=== PATIENT | female | born 1940 | race Caucasian/White ===

== ENCOUNTER 2020-03-04 14:57 | Outpatient (CLI) | payer MEDICARE, SELFPAY ==
--- NOTE | 2020-03-04 15:07 | XRR_ITS ---
PROCEDURE INFORMATION: Exam: XR Left Knee Exam date and time: 03/04/2020 3:25 PM Age: 80 years old Clinical indication: Left; Patient HX: C/O L knee pain ; . HX of breast cancer TECHNIQUE: Imaging protocol: XR Left knee. Views: 3 views. COMPARISON: No relevant prior studies available. FINDINGS: Bones/joints: Of narrowing of the medial and patellofemoral compartments are seen. These findings are consistent with osteoarthritis Soft tissues: Normal. XR/XR knee LT 3V* [id number] IMPRESSION: No acute bony abnormality.
== END 2020-03-04 14:58 | disposition home or self-care (01) ==
LOC: RAD 15:04
PROVIDERS: PCP Family Medicine; Visit Provider Family Medicine
DX: M25.562 Pain in left knee (principal)
CPT/HCPCS: 73562

== ENCOUNTER → 2020-06-03 12:15 | Outpatient (BNVA) | payer MEDICARE, SELFPAY | PROVIDERS: PCP Family Medicine; Visit Provider Nurse Practitioner Family | DX: Z20.828 Contact with and (suspected) exposure to other viral communicable diseases (principal) | CPT/HCPCS: 87635 ==

== ENCOUNTER 2021-07-26 20:00 | Outpatient (CLI) | payer MEDICARE, OTHER, SELFPAY | END 2021-07-26 20:01 | disposition home or self-care (01) | LOC: SLEEP 07-27 07:35 | PROVIDERS: PCP Family Medicine; Visit Provider Family Medicine | DX: G47.33 Obstructive sleep apnea (adult) (pediatric) (principal) | CPT/HCPCS: 95811 ==

== ENCOUNTER 2021-09-21 20:00 | Outpatient (CLI) | payer MEDICARE, OTHER, SELFPAY | END 2021-09-21 20:01 | disposition home or self-care (01) | LOC: SLEEP 09-22 06:24 | PROVIDERS: PCP Family Medicine; Visit Provider Family Medicine | DX: G47.33 Obstructive sleep apnea (adult) (pediatric) (principal) | CPT/HCPCS: 95811 ==

== ENCOUNTER → 2021-12-02 14:37 | Outpatient (BNVA) | payer MEDICARE, OTHER, SELFPAY | PROVIDERS: PCP Family Medicine; Visit Provider Podiatrist Foot & Ankle Surgery | DX: M72.2 Plantar fascial fibromatosis (principal) | CPT/HCPCS: 99203; 99204 ==

== ENCOUNTER → 2022-01-10 14:23 | Outpatient (BNVA) | payer MEDICARE, OTHER, SELFPAY | PROVIDERS: PCP Family Medicine; Visit Provider Podiatrist Foot & Ankle Surgery | DX: M72.2 Plantar fascial fibromatosis (principal); E11.21 Type 2 diabetes mellitus with diabetic nephropathy | CPT/HCPCS: 20550; J1100; J3301; J3490 ==

== ENCOUNTER → 2022-02-21 13:52 | Outpatient (BNVA) | payer MEDICARE, OTHER, SELFPAY | PROVIDERS: PCP Family Medicine; Visit Provider Podiatrist Foot & Ankle Surgery | DX: M72.2 Plantar fascial fibromatosis (principal) | CPT/HCPCS: 99213 ==

== ENCOUNTER → 2022-03-23 08:56 | Outpatient (BNVA) | payer MEDICARE, OTHER, SELFPAY | PROVIDERS: PCP Family Medicine; Visit Provider Family Medicine | DX: K58.9 Irritable bowel syndrome, unspecified (principal); E55.9 Vitamin D deficiency, unspecified; M10.9 Gout, unspecified; E11.9 Type 2 diabetes mellitus without complications | CPT/HCPCS: 80053; 80061; 83036; 84443; 85025 ==

== ENCOUNTER 2022-04-27 11:47 | Outpatient (CLI) | payer MEDICARE, OTHER, SELFPAY ==
--- NOTE | 2022-04-27 12:00 | CT_ITS ---
WS: [id number] CT NECK WITH CONTRAST HISTORY: anterior neck cyst TECHNIQUE: Contiguous 5 mm axial images are performed through the neck with intravenous contrast. Sag ittal and coronal reformats are also submitted. All CT scans at [facility] use at least one o f these dose optimization techniques: automated exposure control; mA and/or kV adjustment per patient size (includes targeted exams where dose is matched to clinical indication); or iterative reconstruc tion. CONTRAST: CONTRAST: Omnipaque 350; 65 mL IV. DLP: 252.91 mGy.cm COMPARISON: None available. Nasopharynx, oropharynx, hypopharynx and larynx are unremarkable. No soft tissue masses or abnormal e nhancement. Torus tubarius and fossa of Rosenmuller and parapharyngeal fat are normal. No significant lymphadenopathy is identified. Thyroid gland is enlarged and nodular. There are multiple small nodules with the largest in the LEFT thyroid measuring 9 mm. The LEFT lobe is slightly greater than the RIGHT. No midline mass. No thyrogl ossal duct cysts. Severe disc space narrowing with partial fusion at C6-7. Visualized portions of the skull base demonstrate no abnormalities. Orbits and globes are within norm al limits. No soft tissue masses. Visualized paranasal sinuses and mastoid air cells are normal. Lung apices are clear. Mediastinal recesses are distended with fluid around the upper mediastinum. CT/CT neck w con* [id number] IMPRESSION: 1. Enlarged multinodular goiter. Several small subcentimeter cysts within the LEFT thyroid. 2. No midline mass. 3. No laryngeal mass. 4. No cervical chain lymphadenopathy.
--- NOTE | 2022-04-27 12:30 | CT_ITS ---
WS: [id number] CT CHEST TECHNIQUE: Contrast enhanced CT of the chest with coronal and sagittal reformatted images. CLINICAL INFORMATION: chest mass, left superior anterior chest COMPARISON: None. DLP: 738.[address] scans at [facility] use at least one of these dose optimization techniques: automated e xposure control; mA and/or kV adjustment per patient size (includes targeted exams where dose is matc hed to clinical indication); or iterative reconstruction. FINDINGS: Heterogeneous enlarged multinodular goiter. This is worse in the LEFT inferior thyroid lobe with dominant heterogeneous nodule with slight extension to the upper mediastinum. Mild mass effect on the trachea LEFT to RIGHT at the thoracic inlet. Thyroid could be further evaluated with ultrasoun d. RIGHT breast prosthesis. Chronic emphysematous changes. Atelectasis in the lung bases. Mild perihilar and lower lobe bronchiectasis. Scattered fibrosis more prominent in the lower lobes. No suspicious pulmonary parenchymal opacities. Normal caliber thoracic aorta. Aortic calcification. C oronary calcification. Prominent central pulmonary arteries can be seen with pulmonary arterial hyper tension. Cardiomegaly. No mediastinal or hilar lymphadenopathy. No axillary lymphadenopathy. Cholecystectomy. Moderate esophageal hiatal hernia. Adrenal glands are normal. Partially visualized r enal cysts. CT/CT chest w con* [id number] IMPRESSION: 1. Enlarged heterogeneous multinodular thyroid compatible with goiter. Dominan t nodule LEFT inferior thyroid lobe extending into the upper mediastinum measur ing 2.3 x 2.3 x 2.5 CM. This can be further evaluated with ultrasound. Multiple low-attenuation subcentimeter thyroid lesions. 2. Mild chronic emphysematous changes. No acute pulmonary infiltrates. 3. Cardiomegaly. Enlarged main pulmonary arteries can be seen with pulmonary a rterial hypertension. 4. No mediastinal or hilar lymphadenopathy. No axillary lymphadenopathy. 5. Moderate esophageal hiatal hernia.
[2022-04-27] MEDS: iohexol 350 mg/mL 100 mL Btl IV ×2 (13:01→13:02)
== END 2022-04-27 11:48 | disposition home or self-care (01) ==
LOC: RAD 11:58
PROVIDERS: PCP Family Medicine; Visit Provider Family Medicine
DX: E04.2 Nontoxic multinodular goiter (principal); R22.2 Localized swelling, mass and lump, trunk; I51.7 Cardiomegaly
CPT/HCPCS: 70491; 71260

== ENCOUNTER 2022-06-17 12:21 | Outpatient (CLI) | payer MEDICARE, OTHER, SELFPAY ==
--- NOTE | 2022-06-17 12:39 | US_ITS ---
WS: [email or web address] Subcutaneous ultrasound of the posterior right back, 06/17/2022 Clinical Data: mass on the right mid back with associated pain Comparison: None. Findings: There was a palpable area in the right back but the subcutaneous ultrasound showed no cysts or masses . There were no abnormalities. Only normal subcutaneous tissue could be seen. US/US soft tissue/extremity [id number] Impression: Negative subcutaneous ultrasound for lesion in the posterior right back.
--- NOTE | 2022-06-17 12:40 | US_ITS ---
WS: [email or web address] Thyroid ultrasound, 06/17/2022 Clinical Data: HYPERTHYROIDISM Comparison: None. Findings: The right lobe of thyroid measures 4.4 cm x 1.7 cm x 1.6 cm. The left lobe measures 4.6 cm x 2.8 cm x 2.8 cm. The isthmus measured 0.6 mm. The echotexture of the thyroid is mixed with numerous small nodules and cysts.. No masses are seen. US/US thyroid [id number] Impression: Multinodular goiter.
== END 2022-06-17 12:22 | disposition home or self-care (01) ==
LOC: RAD 12:21
PROVIDERS: PCP Family Medicine; Visit Provider Family Medicine
DX: M79.89 Other specified soft tissue disorders (principal); E05.90 Thyrotoxicosis, unspecified without thyrotoxic crisis or storm; E04.2 Nontoxic multinodular goiter
CPT/HCPCS: 76536; 76882

== ENCOUNTER 2022-09-19 15:08 | Outpatient (CLI) | payer MEDICARE, OTHER, SELFPAY ==
--- NOTE | 2022-09-19 15:20 | XR_ITS ---
WS: [email or web address] EXAMINATION: XR chest 2V* [id number] REASON FOR EXAM: DYSPNEA COMPARISON: 08/15/2006. ORDER DATE: 09/19/2022 3:25 PM FINDINGS: There are scattered parenchymal and perihilar granulomatous calcifications. The cardiac and mediastin al outlines are unremarkable. There are no pleural effusions. There is calcific aortic change. Degene rative spine changes are present. Prominent osteoporosis and mild scoliosis with prominent kyphosis XR/XR chest 2V* [id number] IMPRESSION: NO ACUTE PULMONARY CHANGE.
== END 2022-09-19 15:09 | disposition home or self-care (01) ==
LOC: RAD 15:14
PROVIDERS: PCP Family Medicine; Visit Provider Family Medicine
DX: R06.00 Dyspnea, unspecified (principal)
CPT/HCPCS: 71046

== ENCOUNTER 2023-03-22 09:29 | Outpatient (CLI) | payer MEDICARE, OTHER, SELFPAY ==
[2023-03-22 10:41] LABS: Estmated Average Glucose 134; Hemoglobin A1C 6.3 % (4.0-6.0)
[2023-03-22 10:43] LABS: Creatinine Urine, Random 89 mg/dL (28-217); Microalbum Creatinine Ratio Ur 11 mg/dL (0-20); Microalbumin Random Urine 1 ug/dL (0-20)
[2023-03-22 10:49] LABS: Alanine Aminotransferase 16 U/L (0-33); Albumin Level 4.4 g/dL (3.5-5.2); Alkaline Phosphatase 70 U/L (35-105); Anion Gap 10.1 (5-19); Aspartate Amino Transferase 13 U/L (0-32); Blood Urea Nitrogen 19 mg/dL (8-23); Calcium 9.5 mg/dL (8.5-10.5); Carbon Dioxide 30 mmol/L (22-29); Chloride 106 mmol/L (98-107); Chol HDL Ratio 4.89 mg/dL (0.0-4.40); Cholesterol 181 mg/dL (0-200); Free T4 Free Thyroxine 1.08 ng/dL (0.82-1.77); Globulin 2.8 g/dL (1.3-4.6); Glucose 151 mg/dL (65-115); HDL Cholesterol 37 mg/dL (60-100); Osmolality Calculated 299 mOsm/kg (285-295); Potassium 4.1 mmol/L (3.5-5.1); Sodium 142 mmol/L (136-145); Thyroid Stimulating Hormone 2.59 uIU/mL (0.27-4.20); Total Bilirubin 0.3 mg/dL (0.15-1.2); Total Protein 7.2 g/dL (6.6-8.7); Triglycerides 497 mg/dL (0-150)
[2023-03-22 11:12] LABS: LDL Cholesterol Direct 79 mg/dL (0-100)
[2023-03-23 12:14] LABS: T3 Total 101 ng/dL (76-181)
== END 2023-03-22 09:30 | disposition home or self-care (01) ==
PROVIDERS: PCP Family Medicine; Visit Provider Internal Medicine
DX: E04.2 Nontoxic multinodular goiter (principal); E05.00 Thyrotoxicosis with diffuse goiter without thyrotoxic crisis or storm; E11.9 Type 2 diabetes mellitus without complications; G47.33 Obstructive sleep apnea (adult) (pediatric); M79.89 Other specified soft tissue disorders; R13.10 Dysphagia, unspecified; R06.02 Shortness of breath; Z79.84 Long term (current) use of oral hypoglycemic drugs
CPT/HCPCS: 36415; 80053; 80061; 82044; 83036; 83721; 84439; 84443; 84480; 99205

== ENCOUNTER 2023-04-03 09:38 | Outpatient (CLI) | payer MEDICARE, OTHER, SELFPAY ==
--- NOTE | 2023-04-03 10:00 | FL_ITS ---
WS: [email or web address] EXAMINATION: FL barium swallow modifd [id number] REASON FOR EXAM: Trouble swallowing ORDER DATE: 04/03/2023 9:43 AM FLUOROSCOPY TIME: 1min [id number] # OF SPOT FILMS: 0 TECHNIQUE: The oral cavity and upper pharyngeal and laryngeal region were observed in the lateral pro jection with fluoroscopy during swallowing. Different consistencies of liquid and food were mixed with barium and administered by the speech path ologist during fluoroscopy. FINDINGS: The oral stage was unremarkable with satisfactory initiation of the swallowing reflex. Mov ement of contrast coated material through the pharynx into the upper esophagus was observed. There wa s no evidence of penetration or aspiration. Please refer to speech pathologist report for specific de tails regarding swallowing function. There was no significant residual. IMPRESSION: PLEASE REFER TO THE SPEECH PATHOLOGIST REPORT FOR ADDITIONAL DETAILS REGARDING THIS MODIFIED BARIUM S WALLOW STUDY.
== END 2023-04-03 09:39 | disposition home or self-care (01) ==
LOC: RAD 09:39
PROVIDERS: PCP Family Medicine; Visit Provider Internal Medicine
DX: R13.10 Dysphagia, unspecified (principal)
CPT/HCPCS: 74230; 92611

== ENCOUNTER 2023-04-20 11:42 | Outpatient (CLI) | payer MEDICARE, OTHER, SELFPAY ==
[2023-04-20 12:40] LABS: Estmated Average Glucose 137; Hemoglobin A1C 6.4 % (4.0-6.0)
[2023-04-20 12:50] LABS: Alanine Aminotransferase 15 U/L (0-33); Albumin Level 4.1 g/dL (3.5-5.2); Alkaline Phosphatase 59 U/L (35-105); Anion Gap 12.4 (5-19); Aspartate Amino Transferase 13 U/L (0-32); Blood Urea Nitrogen 18 mg/dL (8-23); Calcium 9.5 mg/dL (8.5-10.5); Carbon Dioxide 28 mmol/L (22-29); Chloride 106 mmol/L (98-107); Chol HDL Ratio 5.11 mg/dL (0.0-4.40); Cholesterol 179 mg/dL (0-200); Free T4 Free Thyroxine 1.05 ng/dL (0.82-1.77); Globulin 2.8 g/dL (1.3-4.6); Glucose 153 mg/dL (65-115); HDL Cholesterol 35 mg/dL (60-100); Osmolality Calculated 299 mOsm/kg (285-295); Potassium 4.4 mmol/L (3.5-5.1); Sodium 142 mmol/L (136-145); Thyroid Stimulating Hormone 1.59 uIU/mL (0.27-4.20); Total Bilirubin 0.3 mg/dL (0.15-1.2); Total Protein 6.9 g/dL (6.6-8.7); Triglycerides 457 mg/dL (0-150)
[2023-04-20 13:11] LABS: LDL Cholesterol Direct 85 mg/dL (0-100)
[2023-04-20 13:12] LABS: Creatinine Urine, Random 50 mg/dL (28-217); Microalbum Creatinine Ratio Ur 20 mg/dL (0-20); Microalbumin Random Urine 1 ug/dL (0-20)
[2023-04-21 10:20] LABS: T3 Total 93 ng/dL (76-181)
== END 2023-04-20 11:43 | disposition home or self-care (01) ==
LOC: LAB 11:46
PROVIDERS: PCP Family Medicine; Visit Provider Internal Medicine
DX: E04.2 Nontoxic multinodular goiter (principal); E05.90 Thyrotoxicosis, unspecified without thyrotoxic crisis or storm; E11.9 Type 2 diabetes mellitus without complications; G47.33 Obstructive sleep apnea (adult) (pediatric); Z79.899 Other long term (current) drug therapy
CPT/HCPCS: 36415; 80053; 80061; 82044; 83036; 83721; 84439; 84443; 84480

== ENCOUNTER 2023-05-24 15:06 | Outpatient (CLI) | payer MEDICARE, OTHER, SELFPAY ==
--- NOTE | 2023-05-24 15:12 | CTR_ITS ---
PROCEDURE INFORMATION: Exam: CT Neck Without Contrast Exam date and time: 05/24/2023 3:29 PM Age: 83 years old Clinical indication: Condition or disease; Other: Nontoxic multinodular goiter; Patient HX: HX of breast cancer TECHNIQUE: Imaging protocol: Computed tomography of the neck without contrast. Radiation optimization: All CT scans at this facility use at least one of these dose optimization techniques: automated exposure control; mA and/or kV adjustment per patient size (includes targeted exams where dose is matched to clinical indication); or iterative reconstruction. REPORTING DATA: Count of CT and Cardiac NM exams in prior 12 months: This patient has received 0 known CTs and 0 known cardiac nuclear medicine studies in the 12 months prior to the current study. COMPARISON: CT neck w con* [id number] 04/27/2022 12:35 PM RADIATION DOSE METRICS: Total DLP (mGy-cm): 131.97 FINDINGS: Pharynx: Unremarkable. No significant tonsillar enlargement. Larynx: Unremarkable. Epiglottis is normal. Prevertebral and retropharyngeal spaces: Unremarkable. Salivary glands: Normal. Glands are normal in size. Thyroid: Enlarged and heterogeneous left thyroid lobe containing small nodules and coarse calcifications. Lymph nodes: Unremarkable. No lymphadenopathy. Trachea: Visualized trachea is unremarkable. Lungs: Unremarkable as visualized. Bones/joints: Degenerative changes of the cervical spine. Soft tissues: Unremarkable. No significant soft tissue swelling. CT/CT neck wo con [id number] IMPRESSION: Multinodular goiter particularly involving the left thyroid lobe. A neoplastic process cannot be excluded. However the findings are very similar to what was seen previously. COMMENTS: Consistent with the [employer]'s Incidental Findings Committee white paper (J Am [employer] Radiol 2015): In patients aged 35 years and older with an incidental thyroid nodule equal to or greater than 1.[address], MRI or extrathyroidal US, further evaluation with dedicated thyroid US is recommended for patients with normal life expectancy and without comorbidities. For smaller nodules without suspicious features, no further evaluation or follow up is recommended.
== END 2023-05-24 15:07 | disposition home or self-care (01) ==
LOC: RAD 15:06
PROVIDERS: PCP Family Medicine; Visit Provider Specialist
DX: E04.2 Nontoxic multinodular goiter (principal); Z85.3 Personal history of malignant neoplasm of breast
CPT/HCPCS: 70490

== ENCOUNTER → 2023-06-06 10:31 | Outpatient (BNVA) | payer MEDICARE, OTHER, SELFPAY | PROVIDERS: PCP Family Medicine; Visit Provider Internal Medicine | DX: E11.9 Type 2 diabetes mellitus without complications (principal); E04.2 Nontoxic multinodular goiter; Z09 Encounter for follow-up examination after completed treatment for conditions other than malignant neoplasm; G47.33 Obstructive sleep apnea (adult) (pediatric); M79.89 Other specified soft tissue disorders; R13.10 Dysphagia, unspecified; R06.02 Shortness of breath; E04.9 Nontoxic goiter, unspecified; Z79.84 Long term (current) use of oral hypoglycemic drugs | CPT/HCPCS: 99214 ==

== ENCOUNTER → 2023-06-28 15:18 | Outpatient (BNVA) | payer MEDICARE, OTHER, SELFPAY | PROVIDERS: PCP Family Medicine; Referring Provider Internal Medicine; Visit Provider Internal Medicine Pulmonary Disease | DX: J84.9 Interstitial pulmonary disease, unspecified (principal); R06.02 Shortness of breath | CPT/HCPCS: 36415; 82103; 82785; 85651; 86003; 86038; 86140; 86200; 86225; 86235; 86431; 99204 ==

== ENCOUNTER 2023-06-29 11:05 | Outpatient (CLI) | payer MEDICARE, OTHER, SELFPAY | END 2023-06-29 11:06 | disposition home or self-care (01) | PROVIDERS: PCP Family Medicine; Visit Provider Family Medicine | DX: R06.00 Dyspnea, unspecified (principal) | CPT/HCPCS: 94010; 94618 ==

== ENCOUNTER 2023-07-19 09:36 | Outpatient (CLI) | payer MEDICARE, OTHER, SELFPAY ==
--- NOTE | 2023-07-19 10:30 | CT_ITS ---
WS: [email or web address] CT CHEST TECHNIQUE: Noncontrast CT of the chest with coronal and sagittal reformatted images. HRCT protocol wi th inspiration and expiration CLINICAL INFORMATION: HRCT FOR INTERSTITIAL LUNG DISEASE COMPARISON: CT chest 04/27/2022 DLP: 980.[address] scans at [facility] use at least one of these dose optimization techniques: automated e xposure control; mA and/or kV adjustment per patient size (includes targeted exams where dose is matc hed to clinical indication); or iterative reconstruction. FINDINGS: No suspicious abnormalities deep to the palpable marker LEFT upper chest. Normal subcutaneo us fat in this location. Cardiomegaly. Small esophageal hiatal hernia. Moderate chronic emphysematous changes. Bibasilar atele ctasis. No evidence of subpleural honeycombing. No significant bronchiectasis. No evidence of interst itial lung disease. Mild air trapping in the upper lobes and expiratory imaging. Small subpleural nod ule RIGHT middle lobe measuring 5 mm. Aortic calcification. Normal caliber thoracic aorta. Multinodular thyroid goiter. Coronary calcificat ion. No mediastinal or hilar lymphadenopathy. Cholecystectomy. Adrenal glands are normal. Moderate t horacic kyphosis with chronic anterior wedging in the midthoracic spine. No axillary lymphadenopathy. Mild pectus deformity. IMPRESSION: 1. No evidence of interstitial lung disease. No evidence of subpleural honeycombing. 2. Moderate chronic emphysematous changes. 3. Slight hazy atelectasis in the lingula and both lower lobes. 4. No mediastinal or hilar lymphadenopathy. 5. Cardiomegaly. 6. Multinodular thyroid goiter. 7. Small subpleural nodule RIGHT middle lobe measuring 5 mm. 8. Small esophageal hernia. 9. Mild air trapping in the upper lobes on the expiratory imaging.
== END 2023-07-19 09:37 | disposition home or self-care (01) ==
LOC: RAD 09:36
PROVIDERS: PCP Family Medicine; Visit Provider Internal Medicine Pulmonary Disease
DX: J84.9 Interstitial pulmonary disease, unspecified (principal); J43.9 Emphysema, unspecified; J98.11 Atelectasis; I51.7 Cardiomegaly; E04.2 Nontoxic multinodular goiter; R91.1 Solitary pulmonary nodule; K44.9 Diaphragmatic hernia without obstruction or gangrene
CPT/HCPCS: 71250

== ENCOUNTER 2023-07-26 14:12 | Outpatient (CLI) | payer MEDICARE, OTHER, SELFPAY ==
[2023-07-26 15:00] LABS: Estmated Average Glucose 177; Hemoglobin A1C 7.8 % (4.0-6.0)
[2023-07-26 15:02] LABS: Free T4 Free Thyroxine 1.26 ng/dL (0.82-1.77); Thyroid Stimulating Hormone 0.36 uIU/mL (0.27-4.20)
[2023-07-27 14:05] LABS: T3 Total 101 ng/dL (76-181)
== END 2023-07-26 14:13 | disposition home or self-care (01) ==
LOC: LAB 14:13
PROVIDERS: PCP Family Medicine; Visit Provider Internal Medicine
DX: Z09 Encounter for follow-up examination after completed treatment for conditions other than malignant neoplasm (principal); E11.9 Type 2 diabetes mellitus without complications; E04.2 Nontoxic multinodular goiter
CPT/HCPCS: 36415; 83036; 84439; 84443; 84480

== ENCOUNTER → 2023-08-25 08:49 | Outpatient (BNVA) | payer MEDICARE, OTHER, SELFPAY | PROVIDERS: PCP Family Medicine; Visit Provider Internal Medicine | DX: Z09 Encounter for follow-up examination after completed treatment for conditions other than malignant neoplasm (principal); E04.2 Nontoxic multinodular goiter; G47.33 Obstructive sleep apnea (adult) (pediatric); M79.89 Other specified soft tissue disorders; E11.9 Type 2 diabetes mellitus without complications; R13.10 Dysphagia, unspecified; R06.02 Shortness of breath; E04.9 Nontoxic goiter, unspecified; E05.90 Thyrotoxicosis, unspecified without thyrotoxic crisis or storm | CPT/HCPCS: 99213; 99214 ==

== ENCOUNTER 2023-08-28 14:05 | Outpatient (CLI) | payer MEDICARE, OTHER, SELFPAY ==
[2023-08-28 14:56] LABS: Free T4 Free Thyroxine 1.51 ng/dL (0.82-1.77); Thyroid Stimulating Hormone 0.02 uIU/mL (0.27-4.20)
[2023-08-29 10:45] LABS: T3 Total 140 ng/dL (76-181)
== END 2023-08-28 14:06 | disposition home or self-care (01) ==
LOC: LAB 14:06
PROVIDERS: PCP Family Medicine; Visit Provider Internal Medicine
DX: Z09 Encounter for follow-up examination after completed treatment for conditions other than malignant neoplasm (principal); E04.2 Nontoxic multinodular goiter; E05.90 Thyrotoxicosis, unspecified without thyrotoxic crisis or storm
CPT/HCPCS: 36415; 84439; 84443; 84480

== ENCOUNTER → 2023-09-01 11:12 | Outpatient (BNVA) | payer MEDICARE, OTHER, SELFPAY | PROVIDERS: PCP Family Medicine; Visit Provider Internal Medicine Pulmonary Disease | DX: R06.02 Shortness of breath (principal); J45.30 Mild persistent asthma, uncomplicated; G47.33 Obstructive sleep apnea (adult) (pediatric); Z99.89 Dependence on other enabling machines and devices; R94.2 Abnormal results of pulmonary function studies; M25.641 Stiffness of right hand, not elsewhere classified; M25.642 Stiffness of left hand, not elsewhere classified | CPT/HCPCS: 99214 ==

== ENCOUNTER 2023-10-18 10:54 | Outpatient (CLI) | payer MEDICARE, OTHER, SELFPAY ==
[2023-10-18 12:19] LABS: Free T4 Free Thyroxine 1.81 ng/dL (0.82-1.77); Thyroid Stimulating Hormone 0.01 uIU/mL (0.27-4.20)
[2023-10-19 22:55] LABS: T3 Total 119 ng/dL (76-181)
== END 2023-10-18 10:55 | disposition home or self-care (01) ==
PROVIDERS: PCP Family Medicine; Visit Provider Internal Medicine
DX: E05.90 Thyrotoxicosis, unspecified without thyrotoxic crisis or storm (principal); E04.2 Nontoxic multinodular goiter
CPT/HCPCS: 36415; 84439; 84443; 84480

== ENCOUNTER → 2023-10-19 09:37 | Outpatient (BNVA) | payer MEDICARE, OTHER, SELFPAY | PROVIDERS: PCP Family Medicine; Visit Provider Internal Medicine | DX: E11.9 Type 2 diabetes mellitus without complications (principal); E04.2 Nontoxic multinodular goiter; E05.90 Thyrotoxicosis, unspecified without thyrotoxic crisis or storm; Z09 Encounter for follow-up examination after completed treatment for conditions other than malignant neoplasm; G47.33 Obstructive sleep apnea (adult) (pediatric); M79.89 Other specified soft tissue disorders; R13.10 Dysphagia, unspecified; R06.02 Shortness of breath | CPT/HCPCS: 99214 ==

== ENCOUNTER 2023-10-30 21:03 | Emergency (ER) | payer MEDICARE, OTHER, SELFPAY ==
[2023-10-30 21:08] VITALS: BP 130/88; PULSE 78; TEMP 36.6; O2SAT 94; BMI 25.0
--- NOTE | 2023-10-30 21:38 | ECG_ITS ---
[facility] Test Date: 2023-10-30 Pat Name: Delia Lang Department: Room: Gender: Female [employer] Pipe Repairer: : 1940 Requested By: Reggie Ball Order Number: [id number] Yesi MD: Rosa Thomas M.D. Measurements Intervals [place] Rate: 83 P: 64 NH: 175 QRS: -31 QRSD: 89 T: 50 QT: 363 QTc: 428 Interpretive Statements SINUS RHYTHM INFERIOR MYOCARDIAL INFARCTION , PROBABLY OLD [40+ ms Q WAVE AND/OR ST/T ABNORMALITY IN II/aVF] No previous ECG available for comparison Electronically Signed On 10-30-2023 22:54:53 CDT by Rosa Thomas M.D. [email or web address]
--- NOTE | 2023-10-30 21:45 | CTR_ITS ---
PROCEDURE INFORMATION: Exam: CT Head Without Contrast Exam date and time: 10/30/2023 10:11 PM Age: 83 years old Clinical indication: Injury or trauma; Fall; Concussion/head injury; Consciousness not specified; Additional info: Fall/confusion TECHNIQUE: Imaging protocol: Computed tomography of the head without contrast. Radiation optimization: All CT scans at this facility use at least one of these dose optimization techniques: automated exposure control; mA and/or kV adjustment per patient size (includes targeted exams where dose is matched to clinical indication); or iterative reconstruction. COMPARISON: CT cervical spin wo con* [id number] 10/30/2023 10:11 PM RADIATION DOSE METRICS: Total DLP (mGy-cm): 1366.08 FINDINGS: Brain: There is considerable mass effect in the right hemisphere with white matter edema worrisome for a mass lesion in the temporoparietal region. There is 7 mm right to left midline shift. There is no evidence of acute hemorrhage or parenchymal contusion. Cerebral ventricles: Mass effect distorts the right lateral ventricle. Right occipital horn is severely narrowed by adjacent mass effect. Patent 3rd and 4th ventricles. Patent basilar cisterns. Paranasal sinuses: Visualized sinuses are unremarkable. No fluid levels. Mastoid air cells: Visualized mastoid air cells are well aerated. Bones/joints: Hyperostosis frontalis interna. Soft tissues: Unremarkable. CT/CT head wo con* [id number] IMPRESSION: No acute traumatic change. There are findings worrisome for mass lesion in the right temporoparietal region defined mostly by white matter edema and mass effect. There is 7 mm right to left midline shift. Basilar cisterns are patent. Recommend neurology/neurosurgery consultation. Further workup will likely include contrast-enhanced brain MR.
--- NOTE | 2023-10-30 21:45 | CTR_ITS ---
PROCEDURE INFORMATION: Exam: CT Cervical Spine Without Contrast Exam date and time: 10/30/2023 10:11 PM Age: 83 years old Clinical indication: Injury or trauma; Fall; Concussion/head injury; Additional info: Fall/confusion TECHNIQUE: Imaging protocol: Computed tomography of the cervical spine without contrast. Radiation optimization: All CT scans at this facility use at least one of these dose optimization techniques: automated exposure control; mA and/or kV adjustment per patient size (includes targeted exams where dose is matched to clinical indication); or iterative reconstruction. COMPARISON: CT neck wo con [id number] 05/24/2023 3:29 PM RADIATION DOSE METRICS: Total DLP (mGy-cm): 1366.08 FINDINGS: Bones/joints: No evidence of acute cervical spine fracture or traumatic malalignment. Segmentation anomaly versus interbody fusion procedure noted at C6-C7. Adequate spinal canal and neural foramina. Pharynx: Normal fossa of Rosenmuller. Larynx: Normal epiglottis. Lungs: Clear lung apices. Thyroid: Lobulated heterogeneous thyroid. Soft tissues: Unremarkable. CT/CT cervical spin wo con* [id number] IMPRESSION: No evidence of acute cervical spine fracture or malalignment.
--- NOTE | 2023-10-30 21:49 | XRR_ITS ---
PROCEDURE INFORMATION: Exam: XR Chest Exam date and time: 10/30/2023 10:02 PM Age: 83 years old Clinical indication: Injury or trauma; Fall; Blunt trauma (contusions or hematomas); Additional info: Falls TECHNIQUE: Imaging protocol: Radiologic exam of the chest. Views: 1 view. COMPARISON: CT chest [facility] [id number] 07/19/2023 10:01 AM FINDINGS: Lungs: Bibasilar atelectasis versus minimal infiltrate. Pleural spaces: Unremarkable. No pleural effusion. No pneumothorax. Heart/Mediastinum: Borderline cardiomegaly. Bones/joints: Unremarkable. XR/XR chest 1V portable [id number] IMPRESSION: 1. Bibasilar atelectasis versus minimal infiltrate. 2. Borderline cardiomegaly.
--- NOTE | 2023-10-30 21:49 | W.ED.WEAKNES ---
Documented by User: MIGEL Vargas 10/31/23 00:23 HPI - Weakness General: Chief complaint: Weakness Stated complaint: fall, n/v, slurred speech Time Seen by Provider: 10/30/23 21:33 Source: patient Mode of arrival: ambulatory Limitations: no limitations History of Present Illness: Patient is an 83-year-old female who presents to the emergency department with family due to 1 day of slurred speech. Family also notes that the patient has recently had multiple falls, and had a fall today in which she struck her head. No loss of consciousness or symptoms leading up to the fall reported. However patient is also complaining of some nausea and vomiting, as well as a headache. She also is feeling generally weak. She currently is being treated with an antibiotic for a sinus infection. She denies any urinary symptoms. She denies any prior strokes or heart attacks. Patient is alert and oriented x 4, however she states that either I am going crazy or everyone else around me is. She is not on any blood thinners. No recent medication changes. Family states that she has recently been having issues with her thyroid, however. No unilateral weakness, numbness, or tingling. No facial droop noted. Patient's speech reportedly baseline at this time. MD Complaint: generalized weakness Duration: constant Location: generalized Migration: none Severity: moderate Relieving factors: none Exacerbating factors: none Associated symptoms: Reports confusion, headache(s), nausea and vomiting; Denies chest pain, chills, dysuria or fever(s) Review of Systems General: Reports: 10 or more systems reviewed and unremarkable except in HPI and below Const: Reports: other (Multiple falls); Denies: fever(s), chills or fatigue Eyes: Denies: change in vision ENMT: Denies: throat pain, ear or mastoid pain or nasal discharge Card: Denies: chest pain, palpitations, swelling of feet/ankles or lightheadedness Resp: Denies: dyspnea, productive cough or wheezing GI: Reports: nausea and vomiting; Denies: abdominal pain, diarrhea or constipation : Denies: flank pain, difficulty voiding, dysuria or urinary frequency Musc: Denies: neck pain, back pain or joint pain Skin/Breast: Denies: rash Neuro: Reports: headache(s), numbness in extremities, confusion and Slurred speech present; Denies: weakness in extremities [facility] ED PFSH: Medical History Mass of soft tissue Social History Smoking and tobacco/nicotine status: former use of tobacco/nicotine Quit status (tobacco/nicotine): has quit using Year quit tobacco: 1967 Former quit date comment: 1 ppd X 4years Physical Exam Const: COMMON NORMALS: no acute distress, patient oriented x3 and no limitations GENERAL APPEARANCE: cooperative, comfortable and well developed ORIENTATION/CONSCIOUSNESS: Yes awake, Yes oriented to person, Yes oriented to place and Yes oriented to time HENMT: COMMON NORMALS: normocephalic, atraumatic, hearing grossly normal bilaterally, external ears normal, Normal external nose present and Normal nasal mucous membranes and turbinates present HEAD & SCALP: normocephalic and atraumatic FACE & SINUS: normal facial exam NOSE: Normal external nose present, Normal nares present and Normal nasal mucous membranes and turbinates present EXTERNAL EAR: Yes external ears normal MOUTH: moist mucous membranes abnormal Details: cracked and parched Eye: COMMON NORMALS: Equal, round and reactive pupils present, EOMs intact bilaterally and conjunctivae normal CONJUNCTIVA: Yes conjunctivae normal PUPIL: Yes Equal, round and reactive pupils present Neck/C-Spine: COMMON NORMALS: full ROM, supple and no JVD Chest: COMMONS NORMALS: normal inspection of the chest Resp: COMMON NORMALS: normal respiratory effort, No retractions, No use of accessory muscles and clear to auscultation bilaterally AUSCULTATION: clear to auscultation bilaterally Cardio: COMMON NORMALS: no JVD, regular rate, regular rhythm, No clicks present (Cardio), No murmurs present (Cardio) and No rub (Cardio) RATE: regular rate RHYTHM: regular rhythm GI: COMMON NORMALS: Normal to inspection, nondistended, normoactive bowel sounds present, Soft to palpation and non-tender AUSCULTATION: Yes normoactive bowel sounds PALPATION: Yes Soft to palpation RECTAL EXAM: deferred : COMMON NORMALS: Yes no CVA tenderness BLADDER/KIDNEY EXAM: Yes no CVA tenderness Back/Pelvis: COMMON NORMALS: no CVA tenderness, thoracic and lumbar spine normal to inspection, no thoracic nor lumbar tenderness and thoraco-lumbar ROM normal Extremity: COMMON NORMALS: normal to inspection, full ROM and capillary refill normal Neuro: COMMON NORMALS: patient oriented x3, CN's II-XII intact bilaterally, moves all extremities, no focal motor deficits and no sensory deficits noted SENSORIUM/ORIENTATION: Yes oriented to person, Yes oriented to place and Yes oriented to time COORDINATION/BALANCE: [id number] test normal SPEECH: speech normal MOTOR EXAM: 5/5 motor strength present throughout, Pronator motor function not present and no tremor noted COORDINATION: [id number] test normal Psych: COMMON NORMALS: mental status grossly normal and Normal thought process present THOUGHT PROCESS: Normal thought process present Skin: COMMON NORMALS: no rashes or lesions noted GENERAL SKIN EXAM: no rashes or lesions noted Course Vital Signs: Vital signs: Vital Signs Temperature 97.8 F 10/30/23 21:08 Pulse Rate 71 10/31/23 00:31 Respiratory Rate 17 10/31/23 00:31 Blood Pressure 141/77 10/31/23 00:31 Pulse Oximetry 95 10/31/23 00:31 Oxygen Delivery Me thod Nasal Cannula 10/31/23 00:31 Oxygen Flow Rate 2.5 10/31/23 00:31 MDM - Weakness Medical Decision Making Patient was seen for 1 day of multiple neurological symptoms. No prior history of similar issues, strokes, or other relatable etiologies. On arrival she was alert and oriented x 4, however did seem a little confused and slow to respond. Basic lab work unremarkable. CT head without contrast showed concerning signs for neoplasm with mass effect, neurosurgical consult was recommended. Patient's case was presented to a Dr. Berry at [facility] in [place], who recommended transfer to the ED. I then spoke with a Dr. San in the emergency department, who kindly accepts patient for transfer. I informed family of this plan, and they agree. Patient will transfer via ambulance. She is given 10 mg of IV Decadron as well as fluids and Zofran for her nausea. Lab Data I reviewed the patient's lab results. 10/30/23 22:35 10/30/23 22:35 Radiology Impressions Cervical Spine CT 10/30/23 21:45 IMPRESSION: No evidence of acute cervical spine fracture or malalignment. Head CT 10/30/23 21:45 IMPRESSION: No acute traumatic change. There are findings worrisome for mass lesion in the right temporoparietal region defined mostly by white matter edema and mass effect. There is 7 mm right to left midline shift. Basilar cisterns are patent. Recommend neurology/neurosurgery consultation. Further workup will likely include contrast-enhanced brain MR. ADDENDUM: 10/30/23 8381 THIS REPORT CONTAINS FINDINGS THAT MAY BE CRITICAL TO PATIENT CARE. The findings were verbally communicated via telephone conference with JASPER FINN at 10:44 PM CDT on 10/30/2023. The findings were acknowledged and understood. Chest X-Ray 10/30/23 21:49 IMPRESSION: 1. Bibasilar atelectasis versus minimal infiltrate. 2. Borderline cardiomegaly. Laboratory Results WBC 11.01 10^3/uL (3.29-11.43) 10/30/23 22:35 RBC 5.73 10^6/uL (3.85-5.65) H 10/30/23 22:35 Hgb 16.30 g/dL (11.27-16.99) 10/30/23 22:35 Hct 50.6 % (36-47) H 10/30/23 22:35 MCV 88.3 fl (85-98) 10/30/23 22:35 MCH 28.4 pg (27-33) 10/30/23 22:35 MCHC 32.2 g/dL (30-55) 10/30/23 22:35 RDW 12.5 % (12.1-15.1) 10/30/23 22:35 Plt Count 271 10^3/cmm (157-399) 10/30/23 22:35 MPV 10.4 fL (7.4-10.4) 10/30/23 22:35 Neut % (Auto) 70.5 % 10/30/23 22:35 Lymph % (Auto) 22.6 % 10/30/23 22:35 [place] % (Auto) 5.4 % 10/30/23 22:35 Eos % (Auto) 0.6 % 10/30/23 22:35 Baso % (Auto) 0.5 % 10/30/23 22:35 Neut # (Auto) 7.76 10^3/uL (1.8-7.7) H 10/30/23 22:35 Lymph # (Auto) 2.5 10^3/uL (0.8-4.8) 10/30/23 22:35 [place] # (Auto) 0.6 10^3/uL (0.2-0.9) 10/30/23 22:35 Eos # (Auto) 0.1 10^3/uL (0.0-0.8) 10/30/23 22:35 Baso # (Auto) 0.1 10^3/uL (0.0-0.1) 10/30/23 22:35 Nucleated RBC % (auto) 0 % 10/30/23 22:35 Nucleated RBCs # 0.0 /100WBC 10/30/23 22:35 Sodium 137 mmol/L (136-145) 10/30/23 22:35 Potassium 4.0 mmol/L (3.5-5.1) 10/30/23 22:35 Chloride 101 mmol/L (98-107) 10/30/23 22:35 Carbon Dioxide 26 mmol/L (22-29) 10/30/23 22:35 Anion Gap 14.0 (5-19) 10/30/23 22:35 BUN 15 mg/dL (8-23) 10/30/23 22:35 Creatinine 0.6 mg/dL (0.5-0.9) 10/30/23 22:35 GFR Calculation Not Reportable 10/30/23 22:35 Glucose 169 mg/dL (65-115) H 10/30/23 22:35 Calculated Osmolality 289 mOsm/kg (285-295) 10/30/23 22:35 Calcium 10.3 mg/dL (8.5-10.5) 10/30/23 22:35 Total Bilirubin 0.6 mg/dL (0.15-1.2) 10/30/23 22:35 AST 13 U/L (0-32) 10/30/23 22:35 ALT 12 U/L (0-33) 10/30/23 22:35 Alkaline Phosphatase 63 U/L (35-105) 10/30/23 22:35 Creatine Kinase 22 U/L (26-192) L 10/30/23 22:35 Total Protein 7.4 g/dL (6.6-8.7) 10/30/23 22:35 Albumin 3.9 g/dL (3.5-5.2) 10/30/23 22:35 Globulin 3.5 g/dL (1.3-4.6) 10/30/23 22:35 TSH 0.01 uIU/mL (0.27-4.20) L 10/30/23 22:35 All radiology interpretation(s) finalized by discharge Discharge Plan Discharge Patient Disposition: Transfer to ED 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 Not for face or skin folds. allopurinol 100 mg tablet 100 mg PO latanoprost 0.005 % drops 1 drp ophthalmic (eye) albuterol sulfate 90 mcg/actuation HFA aerosol inhaler 2 puff inhalation Q6H PRN (Reason: shortness of breath or wheezing) Qty: 8.5 6RF All Day Allergy (cetirizine) 10 mg capsule 10 mg PO DAILY PRN budesonide-formoterol [Symbicort] 160-4.5 mcg/actuation HFA aerosol inhaler 2 puff inhalation BID Qty: 10.2 6RF triamcinolone acetonide 0.1 % ointment 1 applic topical BID Qty: 30 3RF fluconazole 150 mg tablet 150 mg PO Q3D Qty: 2 1RF Rx Instructions: for yeast infection methimazole 5 mg tablet 2.5 mg PO .every other day Qty: 30 0RF Referrals: Lucinda Gonzalez DO [Primary Care Provider] - Coding Level of Care Code ED [employer]isher for Chg Fwd Documented by User: Willi Fuller DO 11/02/23 06:23 HPI - Weakness General: Chief complaint: Weakness Stated complaint: fall, n/v, slurred speech Time Seen by Provider: 10/30/23 21:33 [facility] ED PFSH: Medical History Mass of soft tissue Social History Smoking and tobacco/nicotine status: former use of tobacco/nicotine Quit status (tobacco/nicotine): has quit using Year quit tobacco: 1967 Former quit date comment: 1 ppd X 4years Course Vital Signs: Vital signs: Vital Signs Temperature 97.8 F 10/30/23 21:08 Pulse Rate 71 10/31/23 00:31 Respiratory Rate 17 10/31/23 00:31 Blood Pressure 141/77 10/31/23 00:31 Pulse Oximetry 95 10/31/23 00:31 Oxygen Delivery Me thod Nasal Cannula 10/31/23 00:31 Oxygen Flow Rate 2.5 10/31/23 00:31 MDM - Weakness Medical Decision Making Patient was seen for 1 day of multiple neurological symptoms. No prior history of similar issues, strokes, or other relatable etiologies. On arrival she was alert and oriented x 4, however did seem a little confused and slow to respond. Basic lab work unremarkable. CT head without contrast showed concerning signs for neoplasm with mass effect, neurosurgical consult was recommended. Patient's case was presented to a Dr. Berry at [facility] in [place], who recommended transfer to the ED. I then spoke with a Dr. San in the emergency department, who kindly accepts patient for transfer. I informed family of this plan, and they agree. Patient will transfer via ambulance. She is given 10 mg of IV Decadron as well as fluids and Zofran for her nausea. Chart reviewed Lab Data 10/30/23 22:35 10/30/23 22:35 Radiology Impressions Cervical Spine CT 10/30/23 21:45 IMPRESSION: No evidence of acute cervical spine fracture or malalignment. Head CT 10/30/23 21:45 IMPRESSION: No acute traumatic change. There are findings worrisome for mass lesion in the right temporoparietal region defined mostly by white matter edema and mass effect. There is 7 mm right to left midline shift. Basilar cisterns are patent. Recommend neurology/neurosurgery consultation. Further workup will likely include contrast-enhanced brain MR. ADDENDUM: 10/30/23 1350 THIS REPORT CONTAINS FINDINGS THAT MAY BE CRITICAL TO PATIENT CARE. The findings were verbally communicated via telephone conference with JASPER FINN at 10:44 PM CDT on 10/30/2023. The findings were acknowledged and understood. Chest X-Ray 10/30/23 21:49 IMPRESSION: 1. Bibasilar atelectasis versus minimal infiltrate. 2. Borderline cardiomegaly. Laboratory Results WBC 11.01 10^3/uL (3.29-11.43) 10/30/23 22:35 RBC 5.73 10^6/uL (3.85-5.65) H 10/30/23 22:35 Hgb 16.30 g/dL (11.27-16.99) 10/30/23 22:35 Hct 50.6 % (36-47) H 10/30/23 22:35 MCV 88.3 fl (85-98) 10/30/23 22:35 MCH 28.4 pg (27-33) 10/30/23 22:35 MCHC 32.2 g/dL (30-55) 10/30/23 22:35 RDW 12.5 % (12.1-15.1) 10/30/23 22:35 Plt Count 271 10^3/cmm (157-399) 10/30/23 22:35 MPV 10.4 fL (7.4-10.4) 10/30/23 22:35 Neut % (Auto) 70.5 % 10/30/23 22:35 Lymph % (Auto) 22.6 % 10/30/23 22:35 [place] % (Auto) 5.4 % 10/30/23 22:35 Eos % (Auto) 0.6 % 10/30/23 22:35 Baso % (Auto) 0.5 % 10/30/23 22:35 Neut # (Auto) 7.76 10^3/uL (1.8-7.7) H 10/30/23 22:35 Lymph # (Auto) 2.5 10^3/uL (0.8-4.8) 10/30/23 22:35 [place] # (Auto) 0.6 10^3/uL (0.2-0.9) 10/30/23 22:35 Eos # (Auto) 0.1 10^3/uL (0.0-0.8) 10/30/23 22:35 Baso # (Auto) 0.1 10^3/uL (0.0-0.1) 10/30/23 22:35 Nucleated RBC % (auto) 0 % 10/30/23 22:35 Nucleated RBCs # 0.0 /100WBC 10/30/23 22:35 Sodium 137 mmol/L (136-145) 10/30/23 22:35 Potassium 4.0 mmol/L (3.5-5.1) 10/30/23 22:35 Chloride 101 mmol/L (98-107) 10/30/23 22:35 Carbon Dioxide 26 mmol/L (22-29) 10/30/23 22:35 Anion Gap 14.0 (5-19) 10/30/23 22:35 BUN 15 mg/dL (8-23) 10/30/23 22:35 Creatinine 0.6 mg/dL (0.5-0.9) 10/30/23 22:35 GFR Calculation Not Reportable 10/30/23 22:35 Glucose 169 mg/dL (65-115) H 10/30/23 22:35 Calculated Osmolality 289 mOsm/kg (285-295) 10/30/23 22:35 Calcium 10.3 mg/dL (8.5-10.5) 10/30/23 22:35 Total Bilirubin 0.6 mg/dL (0.15-1.2) 10/30/23 22:35 AST 13 U/L (0-32) 10/30/23 22:35 ALT 12 U/L (0-33) 10/30/23 22:35 Alkaline Phosphatase 63 U/L (35-105) 10/30/23 22:35 Creatine Kinase 22 U/L (26-192) L 10/30/23 22:35 Total Protein 7.4 g/dL (6.6-8.7) 10/30/23 22:35 Albumin 3.9 g/dL (3.5-5.2) 10/30/23 22:35 Globulin 3.5 g/dL (1.3-4.6) 10/30/23 22:35 TSH 0.01 uIU/mL (0.27-4.20) L 10/30/23 22:35 Discharge Plan Discharge Patient Disposition: Transfer to ED 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 Not for face or skin folds. allopurinol 100 mg tablet 100 mg PO latanoprost 0.005 % drops 1 drp ophthalmic (eye) albuterol sulfate 90 mcg/actuation HFA aerosol inhaler 2 puff inhalation Q6H PRN (Reason: shortness of breath or wheezing) Qty: 8.5 6RF All Day Allergy (cetirizine) 10 mg capsule 10 mg PO DAILY PRN budesonide-formoterol [Symbicort] 160-4.5 mcg/actuation HFA aerosol inhaler 2 puff inhalation BID Qty: 10.2 6RF triamcinolone acetonide 0.1 % ointment 1 applic topical BID Qty: 30 3RF fluconazole 150 mg tablet 150 mg PO Q3D Qty: 2 1RF Rx Instructions: for yeast infection methimazole 5 mg tablet 2.5 mg PO .every other day Qty: 30 0RF Referrals: Lucinda Gonzalez DO [Primary Care Provider] - Coding Level of Care Code ED [employer]isher for Chg Annabella
[2023-10-30 21:50] VITALS: PULSE 84; RESP 27; O2SAT 91
[2023-10-30 22:44] LABS: Basophils # 0.1 10^3/uL (0.0-0.1); Basophils % 0.5 %; Eosinophils # 0.1 10^3/uL (0.0-0.8); Eosinophils % 0.6 %; Hematocrit 50.6 % (36-47); Lymphocytes # 2.5 10^3/uL (0.8-4.8); Lymphocytes % 22.6 %; Mean Corpuscular HGB Conc 32.2 g/dL (30-55); Mean Corpuscular Hemoglobin 28.4 pg (27-33); Mean Corpuscular Volume 88.3 fl (85-98); Mean Platelet Volume 10.4 fL (7.4-10.4); Monocytes # 0.6 10^3/uL (0.2-0.9); Monocytes % 5.4 %; Neutrophils # 7.76 10^3/uL (1.8-7.7); Neutrophils % 70.5 %; Nucleated Red Blood Cells % 0 %; Platelet Count 271 10^3/cmm (157-399); Red Blood Count 5.73 10^6/uL (3.85-5.65); Red Cell Distribution Width 12.5 % (12.1-15.1); White Blood Count 11.01 10^3/uL (3.29-11.43)
[2023-10-30 22:46] VITALS: PULSE 80; RESP 17; O2SAT 96
[2023-10-30] MEDS: sodium chloride 0.9% 1,000 ML 999 ML IV (23:15)
[2023-10-30 23:18] VITALS: BP 160/84; PULSE 78; RESP 17; O2SAT 95
[2023-10-30 23:18] LABS: Alanine Aminotransferase 12 U/L (0-33); Albumin Level 3.9 g/dL (3.5-5.2); Alkaline Phosphatase 63 U/L (35-105); Aspartate Amino Transferase 13 U/L (0-32); Blood Urea Nitrogen 15 mg/dL (8-23); Calcium 10.3 mg/dL (8.5-10.5); Carbon Dioxide 26 mmol/L (22-29); Chloride 101 mmol/L (98-107); Creatine Phosphokinase 22 U/L (26-192); Creatinine Clr Calc Pharmacy 50.7532; Globulin 3.5 g/dL (1.3-4.6); Glucose 169 mg/dL (65-115); Osmolality Calculated 289 mOsm/kg (285-295); Sodium 137 mmol/L (136-145); Thyroid Stimulating Hormone 0.01 uIU/mL (0.27-4.20); Total Bilirubin 0.6 mg/dL (0.15-1.2); Total Protein 7.4 g/dL (6.6-8.7)
--- NOTE | 2023-10-31 00:21 | PC.NURSE ---
Report was called to Andrew Vyas RN at [facility] Emergency Department. All questions and concerns were addressed at time of report.
[2023-10-31] MEDS: dexamethasone 10 mg/mL INJ IVP (00:27)
[2023-10-31 00:31] VITALS: BP 141/77; PULSE 71; RESP 17; O2SAT 95
== END 2023-10-31 01:12 ==
PROVIDERS: Emergency Provider Physician Assistant; PCP Family Medicine
DX: D43.2 Neoplasm of uncertain behavior of brain, unspecified (principal); Z87.891 Personal history of nicotine dependence
CPT/HCPCS: 36415; 70450; 71045; 72125; 80053; 82550; 84443; 85025; 93005; 96374; 99285; J1100; J7030